=== PATIENT | male | born 1995 | race Caucasian/White ===

== ENCOUNTER 2018-01-24 08:43 | Emergency (ER) | payer SELFPAY | END 2018-01-24 09:59 | disposition home or self-care (01) | LOC: M ED 08:43 | DX: S93.601A Unspecified sprain of right foot, initial encounter (principal); W22.8XXA Striking against or struck by other objects, initial encounter; Y92.89 Other specified places as the place of occurrence of the external cause; Y93.55 Activity, bike riding | CPT/HCPCS: 73630 ==

== ENCOUNTER 2025-02-05 10:06 | Emergency (ER) | payer OTHER, SELFPAY ==
[~2025-02-05] VITALS: Ht 177.8 cm; Wt 69.3 kg
[~2025-02-05 10:06] MED LIST: IBUP80TA PO
[2025-02-05 15:47] VITALS: BP 139/60; TEMP 99; O2SAT 100
[2025-02-05] MEDS: KETOROLAC 60 MG/2 ML VIAL IM ONE (15:54)
[2025-02-08 20:12] LABS: LYME TOTAL ANTIBODY CIA 5.34 Index (<=0.90)
[2025-02-08 22:57] LABS: BABESIA MICROTI PCR Not Detected (Not Detected)
[2025-02-08 23:31] LABS: LYME AB IGG BY CIA 2.75 Index (<=0.90); LYME AB IGM BY CIA 5.02 Index (<=0.90)
== END 2025-02-05 16:06 | disposition home or self-care (01) ==
LOC: M ED 10:06
DX: I82.612 Acute embolism and thrombosis of superficial veins of left upper extremity (principal); M79.651 Pain in right thigh; Z79.1 Long term (current) use of non-steroidal anti-inflammatories (NSAID)
CPT/HCPCS: 86618; 87469; 93971; 96372; 99283; J1885